=== PATIENT | male | born 1935 | race Caucasian/White ===

== ENCOUNTER → 2017-05-18 | Outpatient (CLI) | payer OTHER ==
[~2017-05-18] MED LIST: ASPCH81X PO; GLUC10007 PO; LEVO75TA PO; MAGN10TA PO; SIMV40TA2 PO; TURM1CAP4 PO
--- NOTE | 2017-05-18 10:20 | DIAGNOSTIC IMAGING REPORT ---
(BARIUM SWALLOW) ESOPHAGUS CLINICAL HISTORY: R05 Chronic dcxutI37.0 Mediastinal lymphadenopathy Possible chron COMPARISON STUDY: None. FLUOROSCOPY TIME: 1.2 minutes.. FINDINGS: 22 images submitted. The patient swallowed barium without difficulty. The contours of the hypopharynx are within normal limits. Small hiatus hernia with a lower esophageal ring. However, the barium tablet passed through the ring. No gastroesophageal reflux. Mild soft tissue dysmotility. IMPRESSION: 1. Small hiatus hernia with a lower esophageal ring. However, the barium tablet passed through the ring. 2. Mild esophageal dysmotility. Electronically signed by: Rahul Hdez M.D. 05/18/2017 10:19 AM Dictated Date/Time: 05/18/2017 10:15 AM
== END | disposition home or self-care (01) ==
LOC: C.RAD 09:38
PROVIDERS: ATTEND Internal Medicine Critical Care Medicine
DX: R59.0 Localized enlarged lymph nodes (principal); R05 Cough; K44.9 Diaphragmatic hernia without obstruction or gangrene

== ENCOUNTER 2023-03-09 13:22 | Observation (INO) ==
[2023-03-09] MEDS ORDERED: SODIUM CHLORIDE 0.9% 500 ML IV ONE (13:37)
--- NOTE | 2023-03-09 13:38 | Emergency Department Note ---
Impression & Plan Pulmonary embolism, Pleuritic chest pain, Dyspnea on exertion ED Provider Note NAME: MARIO OROZCO AGE: 87 SEX: M ARRIVES VIA: Walk-In INFORMANT: Patient ED PROVIDER(S): Moe Alberto MD CHIEF COMPLAINT: Pulmonary embolism on outpatient CT. Referred. PLAN: Disposition: Admit MEDICAL DECISION MAKING: The patient is a pleasant 87-year-old gentleman with a past medical history of hyperlipidemia, hypertension, hypothyroidism who presents to the emergency d epartment referred by his PCP office after having outpatient CT scan that demonstrated segmental pulmonary emboli bilaterally which was ordered in setting of the patient reporting acute worsening of right-sided chest pain over the past week. Patient reports mild shortness of breath with exertion but denies shortness of breath at rest. He reports he has a year or more history of right- sided chest and back pains but there was a noticeable change in the severity and type of pain approximately week ago. He denies any recent immobilization, long travel, personal or family history of blood clots. He denies any history of GI bleeding or bleeding otherwise. He denies cough, congestion, fevers, chills, GI or symptoms. On arrival the patient is in no acute distress, afebrile, HR 90s and otherwise stable vital signs. O2 saturation is 97% on room air with normal respiratory effort. EKG without overt acute ischemia. Chest x-ray negative for acute cardiopulmonary process. WBC, HCT and platelets within normal limits. Chemistry without metabolic acidosis. Electrolytes and FTs unremarkable. High-sensitivity troponin 5.7, within normal limits. BMP within normal limits. Lipase not elevated. COVID-19 RNA, VANITA test was negative. Patient agrees with plan for admission for further management given his pulmonary emboli. Case was [facility], with Dr. Lesa Clay hospitalist who will evaluate the patient for admission. Anticoagulation per admitting team. Triage Nursing notes reviewed and agree them. Prior/outside medical records reviewed Vital Signs: reviewed Differential diagnosis: Cardiac ischemia, aortic dissection, pulmonary embolism, pneumothorax, pneumonia, pericarditis, myocarditis, esophageal rupture, GERD, cholecystitis, pancreatitis, musculoskeletal, as well as other pathologies. ER treatment provided: See below. Diagnostics interpreted by me: ECG: Normal sinus rhythm, 87 bpm, no ectopy, no overt ST elevation or depression, QTc 462, QRS 90 Cardiac Monitoring: An order for continuous cardiac monitoring was placed and demonstrated Normal sinus rhythm, 87 bpm, no ectopy. Laboratory studies: See below Imaging studies: See below Consultation(s): Case was discussed with Eusebia Castillo, [facility] PAC, with Dr. Lesa Clay hospitalist who will evaluate the patient for admission. HPI: The patient is a pleasant 87-year-old gentleman with a past medical history of hyperlipidemia, hypertension, hypothyroidism who presents to the emergency department referred by his PCP office after having outpatient CT scan that demonstrated segmental pulmonary emboli bilaterally which was ordered in setting of the patient reporting acute worsening of right-sided chest pain over the past week. Patient reports mild shortness of breath with exertion but denies shortness of breath at rest. He reports he has a year or more history of right- sided chest and back pains but there was a noticeable change in the severity and type of pain approximately week ago. He denies any recent immobilization, long travel, personal or family history of blood clots. He denies any history of GI bleeding or bleeding otherwise. He denies cough, congestion, fevers, chills, GI or symptoms. ROS: See above HPI for pertinent positives & negatives. A total of 10 systems reviewed and were otherwise negative. VITALS:See Below PHYSICAL EXAMINATION: GENERAL: Awake, alert, well-appearing, in no distress HENT: Normocephalic, atraumatic. Oropharynx unremarkable. EYES: Normal conjunctiva. Sclera non-icteric. NECK: Supple. No nuchal rigidity. FROM. No JVD. RESPIRATORY: Clear to auscultation. CARDIAC: Regular rate, normal rhythm. Extremities warm and well perfused. Pulses equal. ABDOMEN: Soft, non-distended. No tenderness to palpation. No rebound or guarding. No masses. RECTAL: Deferred. MUSCULOSKELETAL: Chest examination reveals no tenderness. The back is symmetri phil on inspection without obvious abnormality. There is no CVA tenderness to palpation. No joint edema. LOWER EXTREMITIES: Calves are equal size bilaterally and non-tender. No edema. No discoloration. NEURO: Normal sensorium. No sensory or motor deficits noted. SKIN: No rash or jaundice noted. ED COURSE: Critical Care: I have personally spent greater than 35 minutes of critical care time in the direct management of this patient. This includes bedside care, interpretation of diagnostic studies, and testing, discussion with consultants, patient, and family members, and other required patient management activities. This 35 minutes is in excess of all separately billable procedures. Moe Alberto MD Past Med/Surg History Medical History (Updated 03/09/23 @ 23:01 by Moe Alberto MD) AAA (abdominal aortic aneurysm) BPH (benign prostatic hyperplasia) CKD (chronic kidney disease), stage III Hyperlipidemia Hypertension Hypothyroidism Mediastinal lymphadenopathy Urinary retention Surgical History History of appendectomy History of colonoscopy Hx of tonsillectomy Family History Father Heart disease Denies family history of Deep vein thrombosis Social History Smoking Status: Former smoker Smoking End Date: teen years; Hx Alcohol Use: Yes Alcohol type: wine Hx Substance Use: No Preferred Language: Namibian Communication Ability: Effective Distillation Operator Required: No Beliefs That Will Affect Care: None Current Living Situation: Spouse Feels Safe at Home: Yes Safety Concerns: Feels Safe At This Time Assistive Devices: Glasses Assistive Devices Comment: glasses Allergies Allergies Allergy/AdvReac Type Severity Reaction Status Date / Time Sulfa (Sulfonamide Allergy Unknown Verified 03/09/23 16:17 Antibiotics) tramadol Allergy itchy Verified 03/09/23 16:17 Home Meds Home Medications Medication Instructions Recorded Confirmed atorvastatin 40 mg tablet 40 mg PO PM 03/09/23 03/09/23 calcium carbonate 600 mg calcium 600 mg PO QAM 03/09/23 03/09/23 (1,500 mg) tablet cyanocobalamin (vitamin B-12) 1,000 mcg PO DAILY 03/09/23 03/09/23 1,000 mcg tablet (Vitamin B-12) fluticasone propionate 50 2 spray intranasal DIRECTED 03/09/23 03/09/23 mcg/actuation nasal spray,suspension yoiyfjkddby-prq-pmgpueaaf-hrb 2 tab PO DAILY 03/09/23 03/09/23 149-hyalur 500 mg-500 mg-66.7 mg tablet (Jryvdsdroyg-Wclmxrmjagq-JBV (with antiox)) levothyroxine 88 mcg tablet 88 mcg PO DAILY 03/09/23 03/09/23 loratadine 10 mg tablet 10 mg PO PM 03/09/23 03/09/23 losartan 25 mg tablet 25 mg PO DAILY 03/09/23 03/09/23 lutein 20 mg-zeaxanthin 1,000 mcg 1 cap PO DAILY 03/09/23 03/09/23 capsule magnesium 250 mg tablet 250 mg PO DAILY 03/09/23 03/09/23 omega-3 fatty acids 1,000 mg 2,000 mg PO DAILY 03/09/23 03/09/23 capsule turmeric root extract 500 mg tablet 500 mg PO DAILY 03/09/23 03/09/23 Results & Data (ED) Vital Signs Vital Signs - 24 hr 03/09/23 13:24 03/09/23 13:27 03/09/23 13:54 Temperature 36.8 C Temperature Source Temporal Artery Scan Pulse Rate 96 H 85 Respiratory Rate 18 Respiratory Effort / Characteristics Non-Labored Spontaneous Respiratory Depth Normal Blood Pressure Blood Pressure [Right Arm] 134/71 Blood Pressure Mean Blood Pressure Mean [Right Arm] 92 Pulse Oximetry 97 Oxygen Delivery Method Room Air Sepsis Recent Fever Within 48 Hours No Sepsis New/Unexplained Change in Mental Status No Sepsis Action Taken by Nursing No Action Required 03/09/23 13:37 03/09/23 13:53 03/09/23 14:00 Temperature Temperature Source Pulse Rate 83 Respiratory Rate 22 Respiratory Effort / Characteristics Respiratory Depth Blood Pressure 138/76 Blood Pressure [Right Arm] Blood Pressure Mean 96 Blood Pressure Mean [Right Arm] Pulse Oximetry 97 Oxygen Delivery Method Room Air Sepsis Recent Fever Within 48 Hours Sepsis New/Unexplained Change in Mental Status Sepsis Action Taken by Nursing 03/09/23 14:00 03/09/23 14:30 03/09/23 14:30 Temperature Temperature Source Pulse Rate 86 76 Respiratory Rate 19 13 Respiratory Effort / Characteristics Respiratory Depth Blood Pressure 131/62 Blood Pressure [Right Arm] Blood Pressure Mean 85 Blood Pressure Mean [Right Arm] Pulse Oximetry 95 94 Oxygen Delivery Method Sepsis Recent Fever Within 48 Hours Sepsis New/Unexplained Change in Mental Status Sepsis Action Taken by Nursing 03/09/23 15:00 03/09/23 15:00 03/09/23 15:30 Temperature Temperature Source Pulse Rate 75 Respiratory Rate 15 Respiratory Effort / Characteristics Respiratory Depth Blood Pressure 128/54 L 134/83 Blood Pressure [Right Arm] Blood Pressure Mean 78 100 Blood Pressure Mean [Right Arm] Pulse Oximetry Oxygen Delivery Method Sepsis Recent Fever Within 48 Hours Sepsis New/Unexplained Change in Mental Status Sepsis Action Taken by Nursing 03/09/23 15:30 03/09/23 16:00 03/09/23 16:00 Temperature Temperature Source Pulse Rate 70 75 Respiratory Rate 22 18 Respiratory Effort / Characteristics Respiratory Depth Blood Pressure 148/72 H Blood Pressure [Right Arm] Blood Pressure Mean 97 Blood Pressure Mean [Right Arm] Pulse Oximetry 97 93 Oxygen Delivery Method Sepsis Recent Fever Within 48 Hours Sepsis New/Unexplained Change in Mental Status Sepsis Action Taken by Nursing 03/09/23 16:46 Temperature Temperature Source Pulse Rate 89 Respiratory Rate 14 Respiratory Effort / Characteristics Respiratory Depth Blood Pressure Blood Pressure [Right Arm] Blood Pressure Mean Blood Pressure Mean [Right Arm] Pulse Oximetry Oxygen Delivery Method Sepsis Recent Fever Within 48 Hours Sepsis New/Unexplained Change in Mental Status Sepsis Action Taken by Nursing Laboratory Data Attestation: I reviewed the patient's lab results. 03/09/23 13:33 03/09/23 13:33 Lab Results 03/09/23 03/09/23 03/09/23 Range/Units 13:33 13:33 13:33 WBC 9.56 (4.8-10.8) K/ul RBC 5.00 (4.70-6.10) M/uL Hgb 13.7 L (14.0-18.0) g/dl Hct 42.4 (42.0-52.0) % MCV 84.8 (80.0-100.0) fL MCH 27.4 (25.0-34.0) pg MCHC 32.3 (32.0-36.0) g/dL RDW Std Deviation 42.3 (36.4-46.3) fL RDW Coeff of Jolene 13.7 (11.5-14.5) % Plt Count 176 (130-400) K/uL MPV 8.8 L (9.4-12.4) fL Immature Gran % (Auto) 0.4 % Neut % (Auto) 72.4 % Lymph % (Auto) 17.2 % [place] % (Auto) 6.5 % Eos % (Auto) 2.6 % Baso % (Auto) 0.9 % Neut # (Auto) 6.92 H (1.40-6.50) K/uL Lymph # (Auto) 1.64 (1.2-3.4) K/uL [place] # (Auto) 0.62 H (0.11-0.59) K/uL Eos # (Auto) 0.25 (0-0.50) K/uL Baso # (Auto) 0.09 (0-0.2) K/uL Immature Gran # (Auto) 0.04 (0.01-0.20) K/uL PT 10.9 (9.0-12.0) Seconds INR 1.0 (0.9-1.1) Sodium 139 (136-145) mmol/L Potassium 4.4 (3.5-5.1) mmol/L Chloride 109 H (98-107) mmol/L Carbon Dioxide 26 (21-32) mmol/L Anion Gap 4 (3-11) BUN 32 H (6-23) mg/dl Creatinine 1.26 (0.6-1.4) mg/dl Est Cr Clr Drug Dosing 44.3 ml/min Est GFR ( Amer) 59.9 ml/min Est GFR (Non-Af Amer) 51.7 ml/min BUN/Creatinine Ratio 25.4 H (10-20) Glucose 71 (70-99(Fasting)) mg/dl Calcium 9.5 (8.6-10.3) mg/dl Magnesium 1.9 (1.7-2.4) mg/dl Total Bilirubin 0.7 (0.2-1.0) mg/dl AST 19 (13-39) U/L ALT 21 (7-52) U/L Alkaline Phosphatase 100 (34-104) U/L Troponin I High Sens 5.7 (0-20) pg/ml B-Natriuretic Peptide (0-100) pg/ml Total Protein 7.4 (6.0-8.3) gm/dl Albumin 3.9 (3.4-5.0) gm/dl Globulin 3.5 (2.5-4.0) gm/dl Albumin/Globulin Ratio 1.1 (0.9-2) Lipase 57 (11-82) U/L SARS-CoV-2, RNA, NAAT (NEGATIVE) 03/09/23 03/09/23 Range/Units 13:33 13:33 WBC (4.8-10.8) K/ul RBC (4.70-6.10) M/uL Hgb (14.0-18.0) g/dl Hct (42.0-52.0) % MCV (80.0-100.0) fL MCH (25.0-34.0) pg MCHC (32.0-36.0) g/dL RDW Std Deviation (36.4-46.3) fL RDW Coeff of Jolene (11.5-14.5) % Plt Count (130-400) K/uL MPV (9.4-12.4) fL Immature Gran % (Auto) % Neut % (Auto) % Lymph % (Auto) % [place] % (Auto) % Eos % (Auto) % Baso % (Auto) % Neut # (Auto) (1.40-6.50) K/uL Lymph # (Auto) (1.2-3.4) K/uL [place] # (Auto) (0.11-0.59) K/uL Eos # (Auto) (0-0.50) K/uL Baso # (Auto) (0-0.2) K/uL Immature Gran # (Auto) (0.01-0.20) K/uL PT (9.0-12.0) Seconds INR (0.9-1.1) Sodium (136-145) mmol/L Potassium (3.5-5.1) mmol/L Chloride (98-107) mmol/L Carbon Dioxide (21-32) mmol/L Anion Gap (3-11) BUN (6-23) mg/dl Creatinine (0.6-1.4) mg/dl Est Cr Clr Drug Dosing ml/min Est GFR ( Amer) ml/min Est GFR (Non-Af Amer) ml/min BUN/Creatinine Ratio (10-20) Glucose (70-99(Fasting)) mg/dl Calcium (8.6-10.3) mg/dl Magnesium (1.7-2.4) mg/dl Total Bilirubin (0.2-1.0) mg/dl AST (13-39) U/L ALT (7-52) U/L Alkaline Phosphatase (34-104) U/L Troponin I High Sens (0-20) pg/ml B-Natriuretic Peptide 97 (0-100) pg/ml Total Protein (6.0-8.3) gm/dl Albumin (3.4-5.0) gm/dl Globulin (2.5-4.0) gm/dl Albumin/Globulin Ratio (0.9-2) Lipase (11-82) U/L SARS-CoV-2, RNA, NAAT NEGATIVE (NEGATIVE) Administered Medications Atorvastatin Calcium (Atorvastatin 40 Mg Tab) 40 mg PO PM COLLIN Stop: 04/08/23 20:59 Last Admin: 03/09/23 22:00 Dose: 40 mg Documented By: ELIZABETH Loratadine (Loratadine 10 Mg Tab) 10 mg PO PM COLLIN Stop: 04/08/23 20:59 Last Admin: 03/09/23 21:59 Dose: 10 mg Documented By: ELIZABETH Losartan Potassium (Losartan Potassium 25 Mg Tab) 25 mg PO DAILY COLLIN Stop: 04/08/23 19:17 Last Admin: 03/09/23 21:59 Dose: 25 mg Documented By: ELIZABETH Discontinued Medications Enoxaparin Sodium (Enoxaparin 80 Mg/0.8 Ml Syr) 80 mg SQ ONE ONE Stop: 03/09/23 17:16 Last Admin: 03/09/23 17:15 Dose: 80 mg Documented By: DILIA Sodium Chloride (Nss) 500 mls @ 999 mls/hr IV .Q31M ONE Stop: 03/09/23 14:07 Last Infusion: 03/09/23 15:46 Dose: 0 mls/hr Documented By: Admin: 03/09/23 14:17 Dose: 999 mls/hr Documented By: DILIA Imaging Data Radiologist's Impression: Chest X-Ray 03/09/23 13:37 XR chest 1V portable HISTORY: 87 years-old Male Chest pain, nonspecific COMPARISON: CTA chest of same day TECHNIQUE: AP view of the chest FINDINGS: Cardiomediastinal and hilar silhouettes are within normal limits. No pneumothorax, pleural effusion, airspace consolidation or pulmonary edema. Degenerative changes of the shoulders and spine. IMPRESSION: 1. No acute processes of the chest identified. 2. Mediastinal and hilar lymphadenopathy is better seen on the CTA chest of same day. ACT 112: Negative or not required by law. The above report was generated using voice recognition software. It may contain grammatical, syntax or spelling errors. Electronically signed by: Jaxon Brandt M.D. 03/09/2023 2:[address]: [place], [place] [phone] CT Scan Report Patient:MARIO OROZCO Admit Date:03/09/23 MR#:[id number] Address1:[address] Acct ID:[id number] Address2: Date:1935 [facility] Zip:[place] [address] Age:87 Location:CT Sex:M Room/Bed: Att Phy:Yoselin Barbosa DO Diagnosis:ELEVATED D-DIMER,CHEST PAIN Mirian Phy:Katty Hoyt DO Service Date:03/09/23 Fam Phy: Interpreting Phy:Tai Pérez MDAdmit Phy: Ordering Phy:Yoselin Barbosa DO cc: ~ CT angio chest PE protocol CLINICAL HISTORY: PE TECHNIQUE: Multidetector row helical CT of the chest was performed with angio graphic protocol. Coronal and sagittal reformations were obtained. Coronal and sagittal MIPS were obtained from the axial data set and were submitted for review. Automated dose lowering techniques and/or adjustment according to patient size were utilized for this exam. CT DOSE: 426.47 mGycm Comparison: Comparison is made to CT chest 09/06/[address] chest 02/28/2017 FINDINGS: Lungs and pleura: Atelectasis versus scarring is seen in the dependent portions of the lungs. Calcified granulomata are seen. Scarring is noted in the left lower lung. Heart and pericardium: There is prominence of the right ventricle without louise enlargement and the curvature of the intraventricular septum is normal. Vessels: There is pulmonary bolus of multiple segmental branches of the right lower lobe pulmonary artery. Left lower lobe segmental pulmonary embolus is also seen. Mediastinum and bola: Numerous enlarged lymph nodes are seen measuring up to 18 mm in the subcarinal region, 9 mm in the left hilum, and 10 mm in the right hilum. Right lower paratracheal node measures 14 mm Chest wall and lower neck: Unremarkable. Abdomen: Unremarkable. Bones: Degenerative changes in the thoracic spine. IMPRESSION: 1. Segmental pulmonary emboli are seen without evidence of right heart strain. 2. Lymphadenopathy is seen, of uncertain etiology but similar in appearance from 2016. ACT 112: Negative or not required by law. Electronically signed by: Tai Pérez M.D. 03/09/2023 12:49 PM Dictated:03/09/23 1238 Transcribed: 03/09/23 1238 Discharge Plan Visit Data Chief Complaint: Referred by Doctor Stated Complaint: HAD CT TODAY,POSSIBLE BLOOD CLOT,DOC REF ED Provider: Moe Alberto Discharge Problem: Pulmonary embolism, Pleuritic chest pain, Dyspnea on exertion Patient Disposition: Admitted As Inpatient Discharge Instructions Interventions: ED Discharge Assessment Last Done: 03/09/23 19:02
--- NOTE | 2023-03-09 14:05 | XRay Report ---
XR chest 1V portable HISTORY: 87 years-old Male Chest pain, nonspecific COMPARISON: CTA chest of same day TECHNIQUE: AP view of the chest FINDINGS: Cardiomediastinal and hilar silhouettes are within normal limits. No pneumothorax, pleural effusion, airspace consolidation or pulmonary edema. Degenerative changes of the shoulders and spine. IMPRESSION: 1. No acute processes of the chest identified. 2. Mediastinal and hilar lymphadenopathy is better seen on the CTA chest of same day. ACT 112: Negative or not required by law. The above report was generated using voice recognition software. It may contain grammatical, syntax o r spelling errors. Electronically signed by: Jaxon Brandt M.D. 03/09/2023 2:04 PM
[2023-03-09 14:15] LABS: Basophils # (auto) 0.09 K/uL (0-0.2); Basophils % (auto) 0.9 %; Eosinophils # (auto) 0.25 K/uL (0-0.50); Eosinophils % (auto) 2.6 %; Hematocrit (blood only) 42.4 % (42.0-52.0); Hemoglobin 13.7 g/dl (14.0-18.0); Immature Granulocytes # (auto) 0.04 K/uL (0.01-0.20); Immature Granulocytes % (auto) 0.4 %; Lymphocytes # (auto) 1.64 K/uL (1.2-3.4); Lymphocytes % (auto) 17.2 %; Mean Corpuscular Hemoglobin 27.4 pg (25.0-34.0); Mean Corpuscular Hgb Conc 32.3 g/dL (32.0-36.0); Mean Corpuscular Volume 84.8 fL (80.0-100.0); Mean Platelet Volume 8.8 fL (9.4-12.4); Monocytes # (auto) 0.62 K/uL (0.11-0.59); Monocytes % (auto) 6.5 %; Neutrophils # (auto) 6.92 K/uL (1.40-6.50); Neutrophils % (auto) 72.4 %; Platelet Count 176 K/uL (130-400); RDW Coefficient of Variation 13.7 % (11.5-14.5); RDW Standard Deviation 42.3 fL (36.4-46.3); White Blood Count 9.56 K/ul (4.8-10.8)
[2023-03-09 14:25] LABS: Albumin Globulin Ratio 1.1 (0.9-2); Albumin Level 3.9 gm/dl (3.4-5.0); BUN Creatinine Ratio 25.4 (10-20); Bilirubin,Total 0.7 mg/dl (0.2-1.0); Calcium 9.5 mg/dl (8.6-10.3); Creatinine Clr Calc Pharmacy 44.3 ml/min; Est GFR (African American) 59.9 ml/min; Est GFR (Non-African American) 51.7 ml/min; Globulin 3.5 gm/dl (2.5-4.0); Magnesium 1.9 mg/dl (1.7-2.4); Potassium 4.4 mmol/L (3.5-5.1); Total Protein 7.4 gm/dl (6.0-8.3)
[2023-03-09 14:30] LABS: Troponin I High Sensitivity 5.7 pg/ml (0-20)
[2023-03-09 14:41] LABS: Prothrombin Time 10.9 Seconds (9.0-12.0)
--- NOTE | 2023-03-09 16:55 | History & Physical Report ---
Date of Service March 09, 2023 Assessment & Plan (1) Pulmonary embolism: Plan: PE present upon arrival Patient is 87-year-old male with PMH HTN, dyslipidemia, CKD III, AAA, BPH, hypothyroidism presented to ER secondary to abnormal outpatient CTA chest - pulmonary embolism. Patient with right-sided chest pain x2 weeks. Denies history of DVT/PE, recent immobilization/surgery/travel/surgery Today in ER vital stable, no hypoxia, no tachycardia CTA chest Segmental pulmonary emboli are seen without evidence of right heart strain. Start Lovenox SQ twice daily (2) Mediastinal lymphadenopathy: Plan: CTA chest: Lymphadenopathy is seen, of uncertain etiology but similar in appearance from 2016. Outpatient 02/28/2017 CT chest: Numerous, small mediastinal lymph nodes which are not significantly changed compared to 10/07/2016. Largest subcarinal lymph node measures 17 mm. Continue outpatient follow-up (3) Hypertension: Plan: Continue losartan (4) Hyperlipidemia: Plan: Continue atorvastatin (5) CKD (chronic kidney disease), stage III: Plan: Cr: 1.26. Baseline 1.2-1.3 Monitor renal functions, avoid nephrotoxic agents when possible (6) AAA (abdominal aortic aneurysm): Plan: H/O AAA Outpatient CT endovascular aneurysm 02/02/2023: 2 infrarenal abdominal aortic saccular aneurysms, largest measuring 5.1 cm in diameter. Bilateral common iliac aneurysms measuring 2 cm on the right and 1.9 cm on the left. 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 vascular surgery DVT Prophylaxis PE present upon arrival. On Lovenox SQ Full Code as per discussion with pt Follows with Dr Katty Hoyt for routine care Pt was seen and care coordinated with Dr Mcfadden. See addendum I spent a total of 75 minutes reviewing notes, outpatient records, labs, medication, coordinating, documenting and providing care for this patient excluding time spent in the performance of separately billed services. History of Present Illness Chief Complaint: Abnormal outpatient CTA chest Primary Care Provider: Katty Hoyt DO Patient is 87-year-old male with PMH HTN, dyslipidemia, CKD III, AAA, BPH, hypothyroidism presented to ER secondary to abnormal outpatient CTA chest. History obtained from patient as well as outpatient chart review. Patient reports for months has been having right-sided chest pain and back pain that he thought was secondary to back pain. He states however the past 2 weeks has had increased right-sided chest pain that worsens with inspiration. He states it feels like a cracked rib. Denies any injury or trauma. Denies any shortness of breath. Patient seen at PCP office 03/08/2023 for right-sided chest pain. Had elevated outpatient D-dimer and was scheduled for CTA chest today. CTA chest today: Segmental pulmonary emboli without evidence of right heart strain and he was referred to ER for further evaluation. Patient denies any recent surgeries, recent travel, prolonged immobilization, history DVT, PE. Denies any family history of clotting disorders. Denies fever/chills, diaphoresis, N/V/D/C, VILLATORO, dizziness, syncope, neck pain, orthopnea, palpitations, cough, hemoptysis, sore throat, rhinorrhea, abdominal pain, paresthesias, weakness, extremity weakness, extremity edema, extremity erythema, rashes, urinary symptoms. Per chart review: Outpatient CT endovascular aneurysm 02/02/2023: 2 infrarenal abdominal aortic saccular aneurysms, largest measuring 5.1 cm in diameter. Bilateral common iliac aneurysms measuring 2 cm on the right and 1.9 cm on the left. 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 Largest subcarinal lymph node measures 17 mm. Allergies Allergy/AdvReac Type Severity Reaction Status Date / Time Sulfa (Sulfonamide Allergy Unknown Verified 03/09/23 16:17 Antibiotics) tramadol Allergy itchy Verified 03/09/23 16:17 Home Medications Medication Instructions Recorded Confirmed Type atorvastatin 40 mg tablet 40 mg PO PM 03/09/23 03/09/23 History calcium carbonate 600 mg calcium 600 mg PO QAM 03/09/23 03/09/23 History (1,500 mg) tablet cyanocobalamin (vitamin B-12) 1,000 mcg PO DAILY 03/09/23 03/09/23 History 1,000 mcg tablet (Vitamin B-12) fluticasone propionate 50 2 spray intranasal DIRECTED 03/09/23 03/09/23 History mcg/actuation nasal spray,suspension xmfcvrbyeth-[id number]-[id number]-hrb 2 tab PO DAILY 03/09/23 03/09/23 History 149-hyalur 500 mg-500 mg-66.7 mg tablet (Mqxogltylxp-Gnvtdwsyjpf-XLM (with antiox)) levothyroxine 88 mcg tablet 88 mcg PO DAILY 03/09/23 03/09/23 History loratadine 10 mg tablet 10 mg PO PM 03/09/23 03/09/23 History losartan 25 mg tablet 25 mg PO DAILY 03/09/23 03/09/23 History lutein 20 mg-zeaxanthin 1,000 mcg 1 cap PO DAILY 03/09/23 03/09/23 History capsule magnesium 250 mg tablet 250 mg PO DAILY 03/09/23 03/09/23 History omega-3 fatty acids 1,000 mg 2,000 mg PO DAILY 03/09/23 03/09/23 History capsule turmeric root extract 500 mg tablet 500 mg PO DAILY 03/09/23 03/09/23 History Past Med/Surg History Medical History (Updated 03/09/23 @ 21:08 by Aminata Castillo PA-C) AAA (abdominal aortic aneurysm) BPH (benign prostatic hyperplasia) CKD (chronic kidney disease), stage III Hyperlipidemia Hypertension Hypothyroidism Mediastinal lymphadenopathy Urinary retention Surgical History History of appendectomy History of colonoscopy Hx of tonsillectomy Family History Father Heart disease Denies family history of Deep vein thrombosis Social History Smoking Status: Former smoker Smoking End Date: teen years; Hx Alcohol Use: Yes Alcohol type: wine Hx Substance Use: No Preferred Language: Maori Communication Ability: Effective Certified Control Systems Technician Required: No Beliefs That Will Affect Care: None Current Living Situation: Spouse Feels Safe at Home: Yes Safety Concerns: Feels Safe At This Time Assistive Devices: Glasses Assistive Devices Comment: glasses Review of Systems Review of Systems: All systems reviewed & are unremarkable except as noted in HPI & below Physical Exam Physical Exam: General: no distress, WDWN Head: normocephalic, atraumatic Eyes: conjunctiva non-injected, anicteric ENT: normal inspection external ears, nose, mucous membranes moist Neck: supple, trachea midline Lungs: clear, no respiratory distress, no wheezing/rhonchi/rales CV: RRR, no murmur, no pretibial edema Abd: normal BS, soft, non-tender Ext: no cyanosis, no calf tenderness Neuro: A&O x 3, no focal deficits noted, normal affect Skin: warm, dry Results & Data Results & Data Vital Signs (Past 12 Hours) Vital Signs Temp Pulse Resp BP Pulse Ox O2 Del Method 03/09/23 13:37 Room Air 03/09/23 13:54 85 03/09/23 13:27 134/71 03/09/23 13:24 36.8 C 96 H 18 97 Room Air Laboratory Results Short CBC 03/09/23 Range/Units 13:33 WBC 9.56 (4.8-10.8) K/ul Hgb 13.7 L (14.0-18.0) g/dl Hct 42.4 (42.0-52.0) % Plt Count 176 (130-400) K/uL BMP 03/09/23 13:33 Sodium 139 Potassium 4.4 Chloride 109 H Carbon Dioxide 26 BUN 32 H Creatinine 1.26 Glucose 71 Calcium 9.5 Liver Function 03/09/23 Range/Units 13:33 Total Bilirubin 0.7 (0.2-1.0) mg/dl AST 19 (13-39) U/L ALT 21 (7-52) U/L Alkaline Phosphatase 100 (34-104) U/L Albumin 3.9 (3.4-5.0) gm/dl Diagnostic Findings Chest X-Ray 03/09/23 13:37 XR chest 1V portable HISTORY: 87 years-old Male Chest pain, nonspecific COMPARISON: CTA chest of same day TECHNIQUE: AP view of the chest FINDINGS: Cardiomediastinal and hilar silhouettes are within normal limits. No pneumothorax, pleural effusion, airspace consolidation or pulmonary edema. Degenerative changes of the shoulders and spine. IMPRESSION: 1. No acute processes of the chest identified. 2. Mediastinal and hilar lymphadenopathy is better seen on the CTA chest of same day. ACT 112: Negative or not required by law. The above report was generated using voice recognition software. It may contain grammatical, syntax or spelling errors. Electronically signed by: Jaxon Brandt M.D. 03/09/2023 2:04 PM ECG Rate (beats per minute): 87 Rhythm: sinus rhythm Supervising Physician Co-Signing Physician Notes Patient seen and examined independently. Chart reviewed. Case discussed with DARRIAN. Here with multiple segmental PEs. Started on therapeutic lovenox. In AM, will investigate cost of NOAC to continue after discharge. Needs 3-6 months treatment. Needs outpatient routine cancer screening. PE is unprovoked. Obtain LE u/s to evaluate for DVT to establish clot burden. Likely discharge tomorrow
[2023-03-09] MEDS ORDERED: ENOXAPARIN 1 MG/KG SQ ONE (16:58)
[2023-03-09] MEDS ORDERED: ENOXAPARIN 80 MG/0.8 ML SYR SQ ONE (17:15)
[2023-03-09] MEDS ORDERED: ENOXAPARIN 1 MG/KG SQ SCH (19:18)
[2023-03-09] MEDS ORDERED: ACETAMINOPHEN 325 MG TAB PO PRN (19:18)
[2023-03-09] MEDS ORDERED: POLYETHYLENE (MIRALAX) 17 GM PACK PO PRN (19:18)
[2023-03-09] MEDS ORDERED: LORATADINE 10 MG TAB PO SCH (21:00)
[2023-03-09] MEDS ORDERED: ATORVASTATIN 40 MG TAB PO SCH (21:00)
[2023-03-09] MEDS: LOSARTAN POTASSIUM 25 MG TAB PO SCH (21:59)
[2023-03-10] MEDS ORDERED: ENOXAPARIN 80 MG/0.8 ML SYR SQ SCH (05:30)
[2023-03-10 06:09] LABS: Hemoglobin 11.7 g/dl (14.0-18.0); Mean Corpuscular Hemoglobin 27.7 pg (25.0-34.0); Mean Corpuscular Hgb Conc 32.5 g/dL (32.0-36.0); Mean Corpuscular Volume 85.1 fL (80.0-100.0); Mean Platelet Volume 8.9 fL (9.4-12.4); Platelet Count 159 K/uL (130-400); RDW Coefficient of Variation 13.8 % (11.5-14.5); RDW Standard Deviation 42.7 fL (36.4-46.3); Red Blood Count 4.23 M/uL (4.70-6.10); White Blood Count 6.14 K/ul (4.8-10.8)
[2023-03-10 06:13] LABS: BUN Creatinine Ratio 25.2 (10-20); Calcium 8.6 mg/dl (8.6-10.3); Creatinine Clr Calc Pharmacy 50.2 ml/min; Est GFR (African American) 69.8 ml/min; Est GFR (Non-African American) 60.2 ml/min; Potassium 4.3 mmol/L (3.5-5.1)
[2023-03-10] MEDS ORDERED: LEVOTHYROXINE SODIUM 88 MCG TABLET PO SCH (06:30)
--- NOTE | 2023-03-10 06:58 | Ultrasound Report ---
BILATERAL LOWER EXTREMITY VENOUS DOPPLER HISTORY: History of pulmonary emboli. evaluate for DVT COMPARISON STUDY: None. FINDINGS: There is normal compressibility, flow, and augmentation within the right lower extremity de ep venous systems. Nonocclusive thrombus identified within the posterior tibial veins which are not c ompressible. Remaining left leg venous structures appear patent. IMPRESSION: 1. No DVT within the right lower extremity. 2. Nonocclusive DVT within the left posterior tibial veins. ACT 112: Negative or not required by law. Electronically signed by: Rahul Hdez M.D. 03/10/2023 6:56 AM
[2023-03-10] MEDS ORDERED: FLUTICASONE PROPIONATE NA SPR 16 GM BTL NAE SCH (09:00)
[2023-03-10] MEDS ORDERED: CYANOCOBALAMIN (B-12) 500 MCG TABLET PO SCH (09:00)
[2023-03-10] MEDS: LOSARTAN POTASSIUM 25 MG TAB PO SCH (09:41)
[2023-03-10 12:42] LABS: Hematocrit (blood only) 37.7 % (42.0-52.0); Hemoglobin 12.4 g/dl (14.0-18.0)
--- NOTE | 2023-03-10 12:50 | Discharge Summary ---
Date of Service March 10, 2023 Admission HPI Per Admitting Provider Patient is 87-year-old male with PMH HTN, dyslipidemia, CKD III, AAA, BPH, hypothyroidism presented to ER secondary to abnormal outpatient CTA chest. History obtained from patient as well as outpatient chart review. Patient reports for months has been having right-sided chest pain and back pain that he thought was secondary to back pain. He states however the past 2 weeks has had increased right-sided chest pain that worsens with inspiration. He states it feels like a cracked rib. Denies any injury or trauma. Denies any shortness of breath. Patient seen at PCP office 03/08/2023 for right-sided chest pain. Had elevated outpatient D-dimer and was scheduled for CTA chest today. CTA chest today: Segmental pulmonary emboli without evidence of right heart strain and he was referred to ER for further evaluation. Patient denies any recent surgeries, recent travel, prolonged immobilization, history DVT, PE. Denies any family history of clotting disorders. Denies fever/chills, diaphoresis, N/V/D/C, VILLATORO, dizziness, syncope, neck pain, orthopnea, palpitations, cough, hemoptysis, sore throat, rhinorrhea, abdominal pain, paresthesias, weakness, extremity weakness, extremity edema, extremity erythema, rashes, urinary symptoms. Per chart review: Outpatient CT endovascular aneurysm 02/02/2023: 2 infrarenal abdominal aortic saccular aneurysms, largest measuring 5.1 cm in diameter. Bilateral common iliac aneurysms measuring 2 cm on the right and 1.9 cm on the left. 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 Largest subcarinal lymph node measures 17 mm. Admission Exam Per Admitting Provider General: no distress, WDWN Head: normocephalic, atraumatic Eyes: conjunctiva non-injected, anicteric ENT: normal inspection external ears, nose, mucous membranes moist Neck: supple, trachea midline Lungs: clear, no respiratory distress, no wheezing/rhonchi/rales CV: RRR, no murmur, no pretibial edema Abd: normal BS, soft, non-tender Ext: no cyanosis, no calf tenderness Neuro: A&O x 3, no focal deficits noted, normal affect Skin: warm, dry Principal Diagnosis Pulmonary embolism Left leg Deep venous thrombosis Discharge Exam Constitutional + well hydrated; no acute distress Elderly man Eyes PERRL, conjunctivae normal, anicteric sclerae ENMT external ear and nose normal, oropharynx normal Respiratory normal respiratory effort, lungs clear to auscultation Cardiovascular Rate/Rhythm: regular rate and regular rhythm S1 S2 Gastrointestinal (Abdomen) normal bowel sounds, soft, nontender, no hepatosplenomegaly Musculoskeletal no cyanosis or clubbing, extremities motor strength 5/5 No pedal edema Neurologic PERRL, EOMI, accommodation nl, no face palsy, no dysarthria Psychiatric A+Ox3, euthymic affect Discharge Data Allergies Allergy/AdvReac Type Severity Reaction Status Date / Time Sulfa (Sulfonamide Allergy Unknown Verified 03/09/23 16:17 Antibiotics) tramadol Allergy itchy Verified 03/09/23 16:17 Consultations 03/09/23 16:07 ED Decision to Admit Stat Ordered Studies 03/10/23 US venous doppler LE BI Routine There is normal compressibility, flow, and augmentation within the right lower extremity deep venous systems. Nonocclusive thrombus identified within the posterior tibial veins which are not compressible. Remaining left leg venous structures appear patent. IMPRESSION: 1. No DVT within the right lower extremity. 2. Nonocclusive DVT within the left posterior tibial veins. Hospital Course (1) Pulmonary embolism: 87-year-old male with PMH HTN, dyslipidemia, CKD III, AAA, BPH, hypothyroidism presented to ER secondary to abnormal outpatient CTA chest -pulmonary embolism. Patient with right-sided chest pain x2 weeks. Denied history of DVT/PE, recent immobilization/surgery/travel/surgery Outpatient CTA chest showed segmental pulmonary emboli are seen without evidence of right heart strain. Lymphadenopathy noted Was started on Lovenox SQ twice daily BNP and trop were normal EKG NSR LE dopplers noted nonocclusive DVT in left posterior tibial veins Educated patient on anticoagulation We reviewed options. He preferred eliquis. Educated on bleeding risks and monitoring Discharged on eliquis 10mg bid x 7 days then 5mg bid afterwards. Will need anticoagulation for atleast 3-6 months VTE is unprovoked based on history Considering lymphadenopathy findings on CT, PCP should arrange follow up with Heme for further evaluation (2) Mediastinal lymphadenopathy: CTA chest: Lymphadenopathy is seen, of uncertain etiology but similar in appearance from 2016. Outpatient 02/28/2017 CT chest: Numerous, small mediastinal lymph nodes which are not significantly changed compared to 10/07/2016. Largest subcarinal lymph node measures 17 mm. As above. PCP to arrange Heme/onc follow up outptient (3) Hypertension: Continue losartan (4) Hyperlipidemia: Continue atorvastatin (5) CKD (chronic kidney disease), stage III: Cr: 1.11. Baseline 1.2-1.3 Monitor renal functions, avoid nephrotoxic agents when possible (6) AAA (abdominal aortic aneurysm): H/O AAA Outpatient CT endovascular aneurysm 02/02/2023: 2 infrarenal abdominal aortic saccular aneurysms, largest measuring 5.1 cm in diameter. Bilateral common iliac aneurysms measuring 2 cm on the right and 1.9 cm on the left. 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 Follows with outpatient [facility] vascular surgery Total Time Total Time Spent Total Time Spent (In Minutes): 45 Total Time Includes: Examination of the Patient, Discharge Planning and Medication Reconciliation Discharge Plan Discharge Items Patient Disposition: Home - Self-Care Reason For Visit: Pulmonary embolism Discharge Diagnosis: Pulmonary embolism Left leg Deep venous thrombosis Activity: Resume your previous activity Non-emergency contact: Primary Care Provider Call non-emergency contact if: you have any medication questions and your symptoms worsen Follow-up/Referrals: Katty Hoyt DO [Primary Care Provider] - (Date & Time 03/15/2023 11:20 AM Provider Ktaty Hoyt DO Department [facility] ) Diet: Heart Healthy Addtl Attending Provider Instructions: Mr Escudero You came to the hospital after outpatient CT scan for intermittent chest pain showed blood clots in your lungs. Ultrasound of your legs also showed blood clot in your Left leg veins. You were started on blood thinners. You are being discharged on tablet blood thinner called Eliquis (Apixaban). Please take this 10mg twice a day for 7 days, then 5mg twice a day afterwards. You will be on blood thinners for about 3-6 months. Please ensure follow up with your Primary Doctor. Please follow up with Hematology in view of blood clot and other findings on CT for further evaluation. It was a pleasure taking care of you. Pending Studies at Discharge: No Stand-Alone Forms: My cuaQea, Smoking Cessation Medications and DC Order Prescriptions: New Eliquis 5 mg tablet See Rx Instructions .ROUTE .COMPLEX Qty: 60 0RF Rx Instructions: Take 10mg twice a day for 7 days, then 5mg twice a day afterwards Continued atorvastatin 40 mg Tablet 40 mg PO PM omega-3 fatty acids 1,000 mg Capsule 2,000 mg PO DAILY cyanocobalamin (vitamin B-12) [Vitamin B-12] 1,000 mcg Tablet 1,000 mcg PO DAILY levothyroxine 88 mcg Tablet 88 mcg PO DAILY calcium carbonate 600 mg calcium (1,500 mg) Tablet 600 mg PO QAM losartan 25 mg Tablet 25 mg PO DAILY magnesium 250 mg Tablet 250 mg PO DAILY fluticasone propionate 50 mcg/actuation [place],Suspension 2 spray intranasal DIRECTED Rx Instructions: administer into each nostril loratadine 10 mg Tablet 10 mg PO PM [id number] [[id number]-[id number] (with antiox)] 500-500-66.7 mg Tablet 2 tab PO DAILY lutein-zeaxanthin 20 mg- 1,000 mcg Capsule 1 cap PO DAILY Rx Instructions: unknown strength turmeric root extract 500 mg Tablet 500 mg PO DAILY Discharge Orders: Discharge Order (Routine); Ordered 03/10/23 Ordered By: Rosie Richardson Admission Data Admit Date/Time: 03/09/23 16:57 Attending Provider: Rosie Richardson I. Admit Provider: Nanci Mcfadden Primary Care Provider: Katty Hoyt Other Providers: Nanci Mcfadden Other Interventions: Discharge Summary Assessment (RN) Last Done: 03/10/23 14:04
--- NOTE | 2023-03-11 05:51 | Electrocardiogram Report ---
Test Reason : Blood Pressure : / mmHG Vent. Rate : 087 BPM Atrial Rate : 087 BPM P-R Int : 178 ms QRS Dur : 090 ms QT Int : 384 ms P-R-T Axes : 039 -11 034 degrees QTc Int : 462 ms Normal sinus rhythm Normal ECG No previous ECGs available Confirmed by Stan Johnson ([id number]) on 03/11/2023 5:51:11 AM Referred By: Yoselin Barbosa Confirmed By:Stan Johnson
== END 2023-03-10 14:38 | disposition home or self-care (01) ==
LOC: ED 13:22 → 2N 13:22 → SUATTDRO 16:57 → 2N 19:02